=== PATIENT | female | born 1995 | race Caucasian/White ===

== ENCOUNTER 2020-03-17 23:58 | Emergency (ER) | payer OTHER ==
[~2020-03-17] VITALS: Ht 162.6 cm; Wt 72.6 kg
[2020-03-18] MEDS ORDERED: ADVIL200 MG PO (00:15)
[2020-03-18] MEDS ORDERED: DICLOFENAC SODI75 MG PO (00:56)
== END 2020-03-18 01:20 | disposition home or self-care (01) ==
LOC: ED 23:58
DX: S46.911A Strain of unspecified muscle, fascia and tendon at shoulder and upper arm level, right arm, initial encounter (principal); X58.XXXA Exposure to other specified factors, initial encounter
CPT/HCPCS: 73030; 99283-25

== ENCOUNTER 2020-05-06 09:08 | Emergency (ER) | payer OTHER ==
[~2020-05-06] VITALS: Ht 162.6 cm; Wt 72.6 kg
[~2020-05-06 09:08] MED LIST: ADVIL200 MG PO; DICLOFENAC SODI75 MG PO
== END 2020-05-06 12:10 | disposition home or self-care (01) ==
LOC: ED 09:08
DX: O03.9 Complete or unspecified spontaneous abortion without complication (principal)
CPT/HCPCS: 76801; 76817; 80053; 81001; 84702; 85025; 86900; 86901; 99284-25

== ENCOUNTER 2020-06-30 17:07 | Emergency (ER) | payer OTHER ==
[~2020-06-30] VITALS: Ht 162.6 cm; Wt 72.6 kg
[2020-06-30] MEDS ORDERED: LACTAID FAS9000 UNIT PO (17:23)
== END 2020-06-30 18:45 | disposition home or self-care (01) ==
LOC: ED 17:07
DX: S93.401A Sprain of unspecified ligament of right ankle, initial encounter (principal); W00.0XXA Fall on same level due to ice and snow, initial encounter; Z79.899 Other long term (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
CPT/HCPCS: 73560; 73610; 99283-25

== ENCOUNTER 2020-08-23 16:48 | Emergency (ER) | payer OTHER ==
[~2020-08-23] VITALS: Ht 162.6 cm; Wt 72.6 kg
[~2020-08-23 16:48] MED LIST changes: +LACTAID FAS9000 UNIT PO
== END 2020-08-23 19:13 | disposition home or self-care (01) ==
LOC: ED 16:48
DX: B34.9 Viral infection, unspecified (principal); J45.909 Unspecified asthma, uncomplicated; Z79.899 Other long term (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; Z20.822 Contact with and (suspected) exposure to COVID-19
CPT/HCPCS: 99284; C9803; U0003

== ENCOUNTER 2020-09-23 04:12 | Emergency (ER) | payer OTHER ==
[~2020-09-23] VITALS: Ht 162.6 cm; Wt 80.0 kg
[2020-09-23] MEDS ORDERED: ESCITALOPRAM OX10 MG PO (04:27)
[2020-09-23] MEDS ORDERED: ADVIL200 MG PO (04:28)
[2020-09-23] MEDS ORDERED: TYLENOL325 M1 PO (04:29)
--- NOTE | 2020-09-24 13:51 | EKG ---
[facility] [address] [facility] [place] [address] Signed Normal sinus rhythm with sinus arrhythmia RSR' or QR pattern in V1 suggests right ventricular conduction delay Borderline ECG No previous ECGs available Confirmed by EVON MATA DO ([id number]) on 09/24/2020 1:51:06 PM Electronically Signed By: EVON MATA DO 09/24/20 1351 PATIENT NAME: PRECIOUS KOLBHelioDANNI HARO Electrocardiogram DATE OF : [birth year] PHYSICIAN: EVON MATA DO REPORT #: [id number] REPORT IS CONFIDENTIAL AND NOT TO BE RELEASED WITHOUT AUTHORIZATION
== END 2020-09-23 06:00 | disposition home or self-care (01) ==
LOC: ED 04:12
DX: S20.211A Contusion of right front wall of thorax, initial encounter (principal); W17.89XA Other fall from one level to another, initial encounter; J45.909 Unspecified asthma, uncomplicated; Z87.891 Personal history of nicotine dependence; Z79.899 Other long term (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
CPT/HCPCS: 71101; 93005; 93010; 99283-25

== ENCOUNTER 2020-09-24 22:59 | Emergency (ER) | payer OTHER ==
[~2020-09-24] VITALS: Ht 162.6 cm; Wt 79.8 kg
[~2020-09-24 22:59] MED LIST changes: +ESCITALOPRAM OX10 MG PO; +TYLENOL325 M1 PO
--- OUTSIDE RECORDS SUMMARY | 2020-09-24 23:02 | XMS ---
PreManage Notification: ROBERT KOLB Security Band Builder Events No recent Security Events currently on file CRITERIA MET - [facility] - 2 Visits in 30 Days CARE PROVIDERS NASIR [facility] Current PHONE: [phone] Dahiana has no Care Guidelines for this patient. ELeon VISIT COUNT (12 MO.) 6 [facility] TOTAL 6 NOTE: Visits indicate total known visits. ED/UCC VISIT TRACKING (12 MO.) 09/24/2020 23:00 [facility] [place] TYPE: Emergency COMPLAINT: - CHEST TIGHTNESS, LT SIDE RIB PAIN 09/23/2020 04:12 [facility] [place] TYPE: Emergency COMPLAINT: - CHEST TIGHTNESS 08/23/2020 16:48 AKIL[facility] Henry [place] TYPE: Emergency COMPLAINT: - COLD SYMPTOMS DIAGNOSES: - Unspecified asthma, uncomplicated - Viral infection, unspecified - Cough - Other jail (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 06/30/2020 17:08 AK[facility] [place] TYPE: Emergency COMPLAINT: - RT FOOT INJURY DIAGNOSES: - Sprain of unspecified ligament of right ankle, initial encounter - Other jail (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 - Fall on same level due to ice and snow, initial encounter 05/06/2020 09:09 [facility]IL[facility] [place] TYPE: Emergency COMPLAINT: - VAGINAL BLEEDING DIAGNOSES: - Complete or unspecified spontaneous without complication 03/17/2020 23:58 AKILAH Henry [place] TYPE: Emergency COMPLAINT: - RT SHOULDER PAIN DIAGNOSES: - Exposure to other specified factors, initial encounter - Pain in right shoulder - Strain of unspecified muscle, fascia and tendon at shoulder and upper arm level, right arm, initial encounter INPATIENT VISIT TRACKING (12 MO.) No inpatient visits to display in this time frame [email or web address]
--- NOTE | 2020-09-26 11:39 | EKG ---
[facility] [address] [facility] [place], [place] [address] Signed Sinus rhythm with marked sinus arrhythmia Otherwise normal ECG When compared with ECG of 23-SEP-2020 05:42, QT has shortened Confirmed by EVON MATA DO ([id number]) on 09/26/2020 11:39:02 AM Electronically Signed By: EVON MATA DO 09/26/20 1139 PATIENT NAME: ELIEL KOLBGiDANNI HARO Electrocardiogram DATE OF : [birth year] PHYSICIAN: EVON MATA DO REPORT #: [id number] REPORT IS CONFIDENTIAL AND NOT TO BE RELEASED WITHOUT AUTHORIZATION
== END 2020-09-25 00:08 | disposition home or self-care (01) ==
LOC: ED 22:59
DX: S20.211A Contusion of right front wall of thorax, initial encounter (principal); W17.89XA Other fall from one level to another, initial encounter; J45.909 Unspecified asthma, uncomplicated; Z87.891 Personal history of nicotine dependence; Z79.899 Other long term (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
CPT/HCPCS: 71045; 93005; 93010; 99283-25

== ENCOUNTER 2020-09-28 09:52 | Emergency (ER) | payer OTHER ==
[~2020-09-28] VITALS: Ht 162.6 cm; Wt 76.1 kg
--- OUTSIDE RECORDS SUMMARY | 2020-09-28 09:56 | XMS ---
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 ELeon VISIT COUNT (12 MO.) [address] [place] [address] TOTAL 7 NOTE: Visits indicate total known visits. ED/UCC VISIT TRACKING (12 MO.) 09/28/2020 09:53 [facility] [place] TYPE: Emergency COMPLAINT: - CHEST PAINS, SHAKEY 09/24/2020 23:00 AKIL[facility] [place] TYPE: Emergency COMPLAINT: - CHEST TIGHTNESS, LT SIDE RIB PAIN 09/23/2020 04:12 AKIL[facility] Henry [place] TYPE: Emergency COMPLAINT: - CHEST TIGHTNESS DIAGNOSES: - Unspecified asthma, uncomplicated - Personal history of nicotine dependence - Other fall from one level to another, initial encounter - Other shelter (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 - Pleurodynia - Contusion of right front wall of thorax, initial encounter 08/23/2020 16:48 AKILAH Hnery [place] TYPE: Emergency COMPLAINT: - COLD SYMPTOMS DIAGNOSES: - Unspecified asthma, uncomplicated - Viral infection, unspecified - Cough - Other intermediate card tender (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 06/30/2020 17:08 AKILAH Henry [place] TYPE: Emergency COMPLAINT: - RT FOOT INJURY DIAGNOSES: - Sprain of unspecified ligament of right ankle, initial encounter - Other shelter (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 - Fall on same level due to ice and snow, initial encounter 05/06/2020 09:09 AKILAH Henry [place] TYPE: Emergency COMPLAINT: - VAGINAL BLEEDING DIAGNOSES: - Complete or unspecified spontaneous without complication 03/17/2020 23:[address] [facility] [place] TYPE: Emergency COMPLAINT: - RT SHOULDER PAIN DIAGNOSES: - Exposure to other specified factors, initial encounter - Pain in right shoulder - Strain of unspecified muscle, fascia and tendon at shoulder and upper arm level, right arm, initial encounter INPATIENT VISIT TRACKING (12 MO.) No inpatient visits to display in this time frame [id number]
--- NOTE | 2020-09-29 06:54 | EKG ---
[facility] [address] [facility] [place], [place] [address] Signed Sinus rhythm with marked sinus arrhythmia Otherwise normal ECG No previous ECGs available Confirmed by MAKAYLA DOUGLAS MD ([id number]) on 09/29/2020 6:54:22 AM Electronically Signed By: MAKAYLA DOUGLAS MD 09/29/20 0654 PATIENT NAME: ROBERT KOLB Electrocardiogram DATE OF : [birth year] PHYSICIAN: MAKAYLA DOUGLAS MD REPORT #: [id number] REPORT IS CONFIDENTIAL AND NOT TO BE RELEASED WITHOUT AUTHORIZATION
== END 2020-09-28 12:01 | disposition home or self-care (01) ==
LOC: ED 09:52
DX: R06.02 Shortness of breath (principal); Z20.822 Contact with and (suspected) exposure to COVID-19; J45.909 Unspecified asthma, uncomplicated; Z79.899 Other long term (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
CPT/HCPCS: 93005; 93010; 99285-25; C9803; U0003

== ENCOUNTER 2020-10-22 23:47 | Emergency (ER) | payer OTHER ==
[~2020-10-22] VITALS: Ht 162.6 cm; Wt 79.0 kg
--- OUTSIDE RECORDS SUMMARY | 2020-10-22 23:48 | XMS ---
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 ELeon VISIT COUNT (12 MO.) [address] [place] [address] TOTAL 8 NOTE: Visits indicate total known visits. ED/UCC VISIT TRACKING (12 MO.) 10/22/2020 23:47 [facility] [place] TYPE: Emergency COMPLAINT: - EAR PAIN 09/28/2020 09:53 [facility] [place] TYPE: Emergency COMPLAINT: - CHEST PAINS, SHAKEY DIAGNOSES: - Other predatory animal exterminator (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 - Shortness of breath - Unspecified asthma, uncomplicated 09/24/2020 23:00 AKIL[facility] Henry [place] TYPE: Emergency COMPLAINT: - CHEST TIGHTNESS, LT SIDE RIB PAIN DIAGNOSES: - Personal history of nicotine dependence - Unspecified asthma, uncomplicated - Other nursing home (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 - Other fall from one level to another, initial encounter - Contusion of right front wall of thorax, initial encounter 09/23/2020 04:12 AKIL[facility] Henry [place] TYPE: Emergency COMPLAINT: - CHEST TIGHTNESS DIAGNOSES: - Unspecified asthma, uncomplicated - Personal history of nicotine dependence - Other fall from one level to another, initial encounter - Other nursing home (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 - Pleurodynia - Contusion of right front wall of thorax, initial encounter 08/23/2020 16:48 AKILAH Henry [place] TYPE: Emergency COMPLAINT: - COLD SYMPTOMS DIAGNOSES: - Unspecified asthma, uncomplicated - Viral infection, unspecified - Cough - Other predatory animal exterminator (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 06/30/2020 17:08 AKIL[facility] Henry [place] TYPE: Emergency COMPLAINT: - RT FOOT INJURY DIAGNOSES: - Sprain of unspecified ligament of right ankle, initial encounter - Other predatory animal exterminator (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 - Fall on same [...] visits to display in this time frame [email or web address]
[2020-10-23] MEDS ORDERED: SUDAFED 12 HOU120 MG PO (00:21)
== END 2020-10-23 00:32 | disposition home or self-care (01) ==
LOC: ED 23:47
DX: H69.83 Other specified disorders of Eustachian tube, bilateral (principal); J45.909 Unspecified asthma, uncomplicated; Z79.899 Other long term (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
CPT/HCPCS: 99282; A9270

== ENCOUNTER 2020-11-04 09:00 | Emergency (ER) | payer OTHER ==
[~2020-11-04] VITALS: Ht 162.6 cm; Wt 79.0 kg
[~2020-11-04 09:00] MED LIST changes: +SUDAFED 12 HOU120 MG PO
--- OUTSIDE RECORDS SUMMARY | 2020-11-04 10:54 | XMS ---
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 ELeon VISIT COUNT (12 MO.) [address] [place] [address] TOTAL 9 NOTE: Visits indicate total known visits. ED/UCC VISIT TRACKING (12 MO.) 11/04/2020 09:01 [facility] Henry [place] TYPE: Emergency COMPLAINT: - ABD PAIN, NAUSEA, LOWER BACK PAIN, BREAST PAIN 10/22/2020 23:47 AKIL[facility] Henry [place] TYPE: Emergency COMPLAINT: - EAR PAIN DIAGNOSES: - Other specified disorders of Eustachian tube, bilateral - Other bus aide (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 - Otalgia, bilateral - Unspecified asthma, uncomplicated 09/28/2020 09:53 AKIL[facility] Henry [place] TYPE: Emergency COMPLAINT: - CHEST PAINS, SHAKEY DIAGNOSES: - Other prison (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 - Shortness of breath - Unspecified asthma, uncomplicated 09/24/2020 23:00 AKIL[facility] Henry [place] TYPE: Emergency COMPLAINT: - CHEST TIGHTNESS, LT SIDE RIB PAIN DIAGNOSES: - Personal history of nicotine dependence - Unspecified asthma, uncomplicated - Other bus aide (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 - Other fall from one level to another, initial encounter - Contusion of right front wall of thorax, initial encounter 09/23/2020 04:12 AKIL[facility] Henry [place] TYPE: Emergency COMPLAINT: - CHEST TIGHTNESS DIAGNOSES: - Unspecified asthma, uncomplicated - Personal history of nicotine dependence - Other fall from one level to another, initial encounter - Other bus aide (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 - Pleurodynia - Contusion of right front wall of thorax, initial encounter 08/23/2020 16:48 AKIL[facility] Henry [place] TYPE: Emergency COMPLAINT: - COLD SYMPTOMS DIAGNOSES: - Unspecified asthma, uncomplicated - Viral infection, unspecified - Cough - Other bus aide (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 06/30/2020 17:08 AKILAH Henry [place] TYPE: Emergency COMPLAINT: - RT FOOT INJURY DIAGNOSES: - Sprain of unspecified ligament of right ankle, initial encounter - Other bus aide (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 - Fall on same [...] visits to display in this time frame [id number]
== END 2020-11-04 13:50 | disposition home or self-care (01) ==
LOC: ED 09:00
DX: M54.5 Low back pain (principal); J45.909 Unspecified asthma, uncomplicated; Z79.899 Other long term (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
CPT/HCPCS: 80053; 81001; 84703; 85025; 99283

== ENCOUNTER 2020-12-14 15:05 | Emergency (ER) | payer OTHER ==
[~2020-12-14] VITALS: Ht 162.6 cm; Wt 79.0 kg
--- OUTSIDE RECORDS SUMMARY | 2020-12-14 15:12 | XMS ---
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 Neda VISIT COUNT (12 MO.) Annie Castañeda TOTAL 10 NOTE: Visits indicate total known visits. ED/UCC VISIT TRACKING (12 MO.) 12/14/2020 15:06 AKILAH [facility] [place] TYPE: Emergency COMPLAINT: - VOMITING BLOOD, DIZZYNESS 11/04/2020 09:01 [facility]IL[facility] Henry [place] TYPE: Emergency COMPLAINT: - ABD PAIN, NAUSEA, LOWER BACK PAIN, BREAST PAIN DIAGNOSES: - Low back pain - Low back pain - Cervicalgia - Other fpc (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 - Unspecified asthma, uncomplicated 10/22/2020 23:47 AKILAH EspinozaYaak HTerese Andrade [place] TYPE: Emergency COMPLAINT: - EAR PAIN DIAGNOSES: - Other specified disorders of Eustachian tube, bilateral - Other fpc (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 - Otalgia, bilateral - Unspecified asthma, uncomplicated 09/28/2020 09:53 AKIL[facility] Henry [place] TYPE: Emergency COMPLAINT: - CHEST PAINS, SHAKEY DIAGNOSES: - Other pen tester (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 - Shortness of breath - Unspecified asthma, uncomplicated 09/24/2020 23:00 AKILAH Roberts VerónicaTerese Andrade [place] TYPE: Emergency COMPLAINT: - CHEST TIGHTNESS, LT SIDE RIB PAIN DIAGNOSES: - Personal history of nicotine dependence - Unspecified asthma, uncomplicated - Other fpc (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 - Other fall from one level to another, initial encounter - Contusion of right front wall of thorax, initial encounter 09/23/2020 04:12 AKILAH Poncekenneth SanchesTerese Andrade [place] TYPE: Emergency COMPLAINT: - CHEST TIGHTNESS DIAGNOSES: - Unspecified asthma, uncomplicated - Personal history of nicotine dependence - Other fall from one level to another, initial encounter - Other pen tester (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 - Pleurodynia - Contusion of right front wall of thorax, initial encounter 08/23/2020 16:48 AKILAH Henry [place] TYPE: Emergency COMPLAINT: - COLD SYMPTOMS DIAGNOSES: - Unspecified asthma, uncomplicated - Viral infection, unspecified - Cough - Other fpc (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 06/30/2020 17:08 AKILAH Henry [place] TYPE: Emergency COMPLAINT: - RT FOOT INJURY DIAGNOSES: - Sprain of unspecified ligament of right ankle, initial encounter - Other pen tester (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 - Fall on same [...] visits to display in this time frame [id number]
[2020-12-14] MEDS ORDERED: PRENATAL VITAM1 EAC5 PO (15:26)
[2020-12-14] MEDS ORDERED: ONDANSETRON ODT4 MG PO (17:29)
== END 2020-12-14 17:46 | disposition home or self-care (01) ==
LOC: ED 15:05
DX: R11.2 Nausea with vomiting, unspecified (principal); J45.909 Unspecified asthma, uncomplicated; Z87.891 Personal history of nicotine dependence; Z20.822 Contact with and (suspected) exposure to COVID-19
CPT/HCPCS: 80053; 81001; 83690; 83735; 84703; 85025; 96374; 99284-25; J2405; J7030; U0003

== ENCOUNTER 2021-03-26 08:10 | Emergency (ER) | payer OTHER ==
[~2021-03-26] VITALS: Ht 162.6 cm; Wt 81.7 kg
[~2021-03-26 08:10] MED LIST changes: +ONDANSETRON ODT4 MG PO; +PRENATAL VITAM1 EAC5 PO
== END 2021-03-26 09:20 | disposition home or self-care (01) ==
LOC: ED 08:10
DX: S46.912A Strain of unspecified muscle, fascia and tendon at shoulder and upper arm level, left arm, initial encounter (principal); W19.XXXA Unspecified fall, initial encounter; J45.909 Unspecified asthma, uncomplicated; Z87.891 Personal history of nicotine dependence; Z79.899 Other long term (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
CPT/HCPCS: 73030; 99283-25

== ENCOUNTER 2021-03-30 23:54 | Emergency (ER) | payer OTHER ==
[~2021-03-30] VITALS: Ht 162.6 cm; Wt 82.0 kg
--- OUTSIDE RECORDS SUMMARY | 2021-03-31 00:02 | XMS ---
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 ELeon VISIT COUNT (12 MO.) [address] [place] [address] TOTAL 11 NOTE: Visits indicate total known visits. 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 driver (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 - Unspecified asthma, uncomplicated 10/22/2020 23:47 AKILAH Henry [place] TYPE: Emergency COMPLAINT: - EAR PAIN DIAGNOSES: - Other specified disorders of Eustachian tube, bilateral - Other fci (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 - Otalgia, bilateral - Unspecified asthma, uncomplicated 09/28/2020 09:53 AKILAH Henry [place] TYPE: Emergency COMPLAINT: - CHEST PAINS, SHAKEY DIAGNOSES: - 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 driver (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 - Shortness of breath - Unspecified asthma, uncomplicated 09/24/2020 23:00 AKILAH Henry [place] TYPE: Emergency COMPLAINT: - CHEST TIGHTNESS, LT SIDE RIB PAIN DIAGNOSES: - Personal history of nicotine dependence - Unspecified asthma, uncomplicated - 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 driver (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 - Other fall from one level to another, initial encounter - Contusion of right front wall of thorax, initial encounter 09/23/2020 04:12 AKILAH Henry [place] TYPE: Emergency COMPLAINT: - CHEST TIGHTNESS DIAGNOSES: - Unspecified asthma, uncomplicated - Personal history of nicotine dependence - Other fall from one level to another, initial encounter - Other fci (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 - Pleurodynia - Contusion of right front wall of thorax, initial encounter 08/23/2020 16:48 AKILAH Henry [place] TYPE: Emergency COMPLAINT: - COLD SYMPTOMS DIAGNOSES: - Unspecified asthma, uncomplicated - Viral infection, unspecified - Cough - Other fci (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 06/30/2020 17:08 AKILAH Henry [place] TYPE: Emergency COMPLAINT: - RT FOOT INJURY DIAGNOSES: - Sprain of unspecified ligament of right ankle, initial encounter - 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
[2021-03-31] MEDS ORDERED: TYLENOL EXTRA500 MG PO (00:15)
[2021-03-31] MEDS ORDERED: IBU-200200 MG PO (00:16)
== END 2021-03-31 00:51 | disposition home or self-care (01) ==
LOC: ED 23:54
DX: M25.512 Pain in left shoulder (principal); Z87.891 Personal history of nicotine dependence; Z79.899 Other long term (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; X50.9XXA Other and unspecified overexertion or strenuous movements or postures, initial encounter
CPT/HCPCS: 99283

== ENCOUNTER 2022-04-28 12:35 | Emergency (ER) | payer BC, OTHER ==
[~2022-04-28] VITALS: Ht 162.6 cm; Wt 83.0 kg
[~2022-04-28 12:35] MED LIST changes: +IBU-200200 MG PO; +TYLENOL EXTRA500 MG PO
--- OUTSIDE RECORDS SUMMARY | 2022-04-28 12:38 | XMS ---
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 ELeon VISIT COUNT (12 MO.) 2 AKILAH Castañeda TOTAL 2 NOTE: Visits indicate total known visits. ED/C VISIT TRACKING (12 MO.) 04/28/2022 12:37 AKILAH Henry [place] TYPE: Emergency COMPLAINT: - HEADACHES, BLURRY VISION, DIFFICULTY FOCUSING EYES 10/31/2021 17:42 AKILAH Henry [place] TYPE: Emergency COMPLAINT: - LACERATION DIAGNOSES: - Other terminal makeup operator (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 - Unspecified asthma, uncomplicated - Laceration without foreign body of right middle finger without damage to nail, initial encounter - Latex allergy status - Encounter for immunization - Personal history of nicotine dependence - Contact with knife, initial encounter - Laceration without foreign body of right ring finger without damage to nail, initial encounter - Anxiety disorder, unspecified INPATIENT VISIT TRACKING (12 MO.) No inpatient visits to display in this time frame [id number]
[2022-04-28] MEDS ORDERED: ACETAZOLAMIDE250 MG PO (18:39)
== END 2022-04-28 19:30 | disposition home or self-care (01) ==
LOC: ED 12:35
DX: G93.2 Benign intracranial hypertension (principal); J45.909 Unspecified asthma, uncomplicated; Z87.891 Personal history of nicotine dependence; Z91.040 Latex allergy status; Z79.899 Other long term (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
CPT/HCPCS: 36415; 70551; 80053; 82945; 82947; 84157; 84703; 85025; 87205; 89051; 99284-25

== ENCOUNTER 2022-04-29 13:06 | Emergency (ER) | payer BC, OTHER ==
[~2022-04-29] VITALS: Ht 162.6 cm; Wt 83.0 kg
[~2022-04-29 13:06] MED LIST changes: +ACETAZOLAMIDE250 MG PO
--- OUTSIDE RECORDS SUMMARY | 2022-04-29 13:10 | XMS ---
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 ELeon VISIT COUNT (12 MO.) [address] [place] [address] TOTAL 3 NOTE: Visits indicate total known visits. ED/UCC VISIT TRACKING (12 MO.) 04/29/2022 13:08 AKILAH Henry [place] TYPE: Emergency COMPLAINT: - BACK PAIN, DIZZINESS, NAUSEA, PAIN IN CHEST 04/28/2022 12:37 AKILAH Henry [place] TYPE: Emergency COMPLAINT: - HEADACHES, BLURRY VISION, DIFFICULTY FOCUSING EYES 10/31/2021 17:42 AKILAH Henry [place] TYPE: Emergency COMPLAINT: - LACERATION DIAGNOSES: - Personal history of nicotine dependence - Contact with knife, initial encounter - Laceration without foreign body of right ring finger without damage to nail, initial encounter - Anxiety disorder, unspecified - Other assisted (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 - Unspecified asthma, uncomplicated - Laceration without foreign body of right middle finger without damage to nail, initial encounter - Latex allergy status - Encounter for immunization INPATIENT VISIT TRACKING (12 MO.) No inpatient visits to display in this time frame [id number]
== END 2022-04-30 00:50 | disposition home or self-care (01) ==
LOC: ED 13:06
DX: G44.309 Post-traumatic headache, unspecified, not intractable (principal); J45.909 Unspecified asthma, uncomplicated; Z87.891 Personal history of nicotine dependence; Z79.899 Other long term (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
CPT/HCPCS: 36415; 80053; 81003; 83735; 85025; 99284

== ENCOUNTER 2022-07-15 17:38 | Emergency (ER) | payer BC, OTHER ==
[~2022-07-15] VITALS: Ht 162.6 cm; Wt 80.7 kg
[2022-07-15] MEDS ORDERED: PROTONIX40 MG PO (20:57)
== END 2022-07-15 21:15 | disposition home or self-care (01) ==
LOC: ED 17:38
DX: R10.11 Right upper quadrant pain (principal); J45.909 Unspecified asthma, uncomplicated; Z87.891 Personal history of nicotine dependence; Z91.040 Latex allergy status; Z79.899 Other long term (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
CPT/HCPCS: 36415; 76705; 80053; 81003; 83690; 84703; 85025; 99284-25